=== PATIENT | female | born 2000 | race Two or more races ===

== ENCOUNTER 2025-02-17 14:59 | Emergency (ER) | payer MEDICAID ==
[~2025-02-17] VITALS: Ht 154.9 cm; Wt 45.0 kg
[~2025-02-17 14:59] MED LIST: CEPH250S PO; IBUP100S11 GT
[2025-02-17] MEDS ORDERED: SODIUM CHLORIDE 0.9% 1,000 ML IV ONE (15:15)
--- NOTE | 2025-02-17 15:21 | ED.PDOC ---
History of Present Illness HPI Comments 24 y/o F, accompanied by boyfriend, with no prior medical history presents to the ED for CC of near syncopal episode. Per boyfriend, patient had a near syncopal episodes [employer], where she became unresponsive, eyes rolled back, and twitched. Patient relays, that she was drinking heavily yesterday (02/16/25) and today (02/17/25) has been vomiting profusely. No other symptoms or modifying factors present at this time. Time Seen by MD: 15:00 Primary Care Provider: LONG Reviewed Notes: Nurses Notes, Medications, Allergies Allergies: Coded Allergies: NO KNOWN ALLERGIES (Unverified , 10/24/13) Home Meds Active Scripts Ibuprofen (Motrin) 100 Mg/5 Ml Ud, 270 MG GT Q6HP PRN, #300 ML Prov:ALANNA LANDRY N.P. 10/24/13 Cephalexin (Cephalexin) 250 Mg/5 Ml Ly, 2 TSP PO TID, #300 ML Prov:ALANNA LANDRY N.P. 10/24/13 Information Source: Patient, Significant Other Mode of Arrival: Wheelchair Severity: Moderate Timing: Minutes Duration: Since onset Prehospital treatment: None Past Medical History PAST MEDICAL HISTORY: Denies Surgical History: Denies all surgeries Family History Family History: Family hx of heart oly Social History Smoker: Non-Smoker Alcohol: Occasionally Drugs: Denies Drug Use Lives In: Home Constitutional: denies: chills, diaphoresis, fatigue, fever, malaise, sweats, weakness, others EENTM: denies: blurred vision, double vision, ear bleeding, ear discharge, ear drainage, ear pain, ear ringing, eye pain, eye redness, hearing loss, mouth pain , mouth swelling, nasal discharge, nose bleeding, nose congestion, nose pain, photophobia, tearing, throat pain, throat swelling, voice changes, others Respiratory: denies: cough, hemoptysis, orthopnea, SOB at rest, shortness of breath, SOB with excertion, stridor, wheezing, others Cardiovascular: denies: chest pain, dizzy spells, diaphoresis, Dyspnea on exertion, edema, irregular heart beat, left arm pain, lightheadedness, palpitations, PND, syncope, others Gastrointestinal: reports: nausea, vomiting; denies: abdomen distended, abdominal pain, blood streaked bowels, constipated, diarrhea, dysphagia, difficulty swallowing, hematemesis, melena, poor appetite, poor fluid intake, rectal bleeding, rectal pain, others Genitourinary: denies: abnormal vagina bleeding, burning, dyspareunia, dysuria, flank pain, frequency, hematuria, incontinence, pain, , vagina discharge, urgency, others Neurological: denies: dizziness, fainting, headache, left sided numbness, left sided weakness, numbness, paresthesia, pre-existing deficit, right sided numbness, right sided weakness, seizure, speech problems, tingling, tremors, weakness, others Musculoskeletal: denies: back pain, gout, joint pain, joint swelling, muscle pain, muscle stiffness, neck pain, others Integumetry: denies: bruises, change in color, change in hair/nails, dryness, laceration, lesions, lumps, rash, wounds, others Allergic/Immunocompromised: denies: Difficulty Healing, Frequent Infections, Hives, Itching, others Hematologic/Lymphatic: denies: anemia, blood clots, easy bleeding, easy bruising, swollen glands, others Endocrine: denies: excessive hunger, excessive sweating, excessive thirst, excessive urination, flushing, intolerance to cold, intolerance to heat, unexplained weight gain, unexplained weight loss, others Psychiatric: denies: anxiety, bipolar disorder, depression, hopeless, panic disorder, schizophrenia, sleepless, suicidal, others All Other Systems: Reviewed and Negative Physical Exam General Appearance: Mild Distress HEENT: Normal ENT Inspection, Pharynx Normal, TMs Normal Neck: Full Range of Motion, Non-Tender, Normal, Normal Inspection Respiratory: Chest Non-Tender, Lungs Clear, No Accessory Muscle Use, No Respiratory Distress, Normal Breath Sounds Cardiovascular: No Edema, No JVD, No Murmur, No Gallop, Normal Peripheral Pulses, Regular Rate/Rhythm Breast Exam: Deferred Gastrointestinal: No Organomegaly, Non Tender, No Pulsatile Mass, Normal Bowel Sounds, Soft Genitalia: Deferred Pelvic: Deferred Rectal: Deferred Extremities: No calf tenderness, Normal capillary refill, Normal inspection, Normal range of motion, Non-tender, No pedal edema Musculoskeletal : Apperance: Normal Neurologic: Alert, chemistry tutor II-XII nml as Tested, No Motor Deficits, No Sensory Deficits, Other (Anxiety) Cerebellar Function: Normal Reflexes: Normal Skin: Dry, Normal Color, Warm Lymphatic: No Adenopathy Was a procedure done? Was a procedure done?: No Differential Dx Considerations may include: DEHYDRATION, ELECTROLYTE IMBALANCE, ANXIETY X-Ray, Labs, Meds, VS Immediately after triage, the patient was left the department's Time of 1ST Reevaluation: 15:30 Reevaluation 1ST: Unchanged Patient Education/Counseling: Diagnosis, Treatment, Prognosis Family Education/Counseling: Diagnosis, Treatment, Prognosis Departure 1 Departure Time of Disposition: 15:44 Impression: Primary Impression: Anxiety Additional Impression: Alcohol withdrawal Qualified Codes: F10.930 - Alcohol use, unspecified with withdrawal, uncomplicated Disposition: 07 LEFT AWOL/ELOPED Condition: Fair Critical Care Note Critical Care Time?: No Stability Stability form required: No Heart Score Heart Score: Heart Score Response (Comments) Value History N/A 0 EKG N/A 0 Age N/A 0 Risk Factors N/A 0 Troponin N/A 0 Total 0 I personally scribed for PRO HINES MD ([email or web address]) on 02/17/25 at 15:21. Electronically submitted by Imelda Lugo ([email or web address]). PRO HINES MD February 17, 2025 15:21
[2025-02-17 15:45] VITALS: BP 129/78; PULSE 69; RESP 16; TEMP 97.7; O2SAT 96
== END 2025-02-17 15:55 | disposition left against medical advice (07) ==
LOC: ER 15:22
DX: F41.9 Anxiety disorder, unspecified (principal); F10.930 Alcohol use, unspecified with withdrawal, uncomplicated; Y90.9 Presence of alcohol in blood, level not specified